=== PATIENT | female | born 1930 | race Caucasian/White ===

== ENCOUNTER 2016-10-23 18:14 | Emergency (ER) | payer OTHER ==
[2016-10-23 18:54] LABS: URINE BILIRUBIN NEGATIVE (NEGATIVE); URINE BLOOD 1+ (NEGATIVE); URINE GLUCOSE (UA) 1+ (NEGATIVE); URINE LEUKOCYTE ESTERASE 2+ (NEGATIVE); URINE NITRITE NEGATIVE (NEGATIVE); URINE PROTEIN 2+ (NEGATIVE); URINE UROBILINOGEN NORMAL (0-1 mg/dl)
[2016-10-23 19:08] LABS: URINE APPEARANCE CLOUDY; URINE COLOR YELLOW
[2016-10-23 19:24] LABS: URINE RBC 0-1 /hpf
[2016-10-23 19:25] LABS: URINE BACTERIA 4+; URINE EPITHELIAL CELLS 0 /hpf; URINE WBC 50-60 /hpf
--- NOTE | 2016-10-23 19:52 | CT ---
EXAMINATION: Noncontrast cranial CT. CLINICAL INDICATION: Weakness and confusion. TECHNIQUE: A noncontrast cranial CT scan was obtained. Axial images were acquired from just above the vertex through the skull base. 4 mm stacked axial, coronal, and sagittal reconstructions were reviewed. COMPARISONS: 08/10/2016. FINDINGS: The CSF containing spaces are prominent throughout. There is diminished attenuation within the periventricular white matter tracts bilaterally. Bilateral basal ganglia calcifications are again noted. No acute intercranial hemorrhage, mass or mass effect is identified. No extra-axial fluid collections are detected. The visualized segments of the posterior fossa are unremarkable. The cerebellar pontine angle cisterns are symmetric. The osseous structures are intact. The paranasal sinuses are clear. The visualized portions of the orbits are unremarkable. The mastoid sinuses are normal and symmetric. 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 No acute intracranial abnormalities are identified. The findings were uploaded to the electronic medical record for review at approximately 7:52 PM 10/23/2016
[2016-10-23 20:11] LABS: I-STAT CREATININE 2.2 mg/dL (0.6-1.3)
[2016-10-23 20:37] LABS: TROPONIN I 0.03 ng/ml (0.0-0.06)
[2016-10-23] MEDS ORDERED: CEFTRIAXONE 1 GRAM DUPLEX 50 ML IV ONE (20:38)
[2016-10-23 20:46] LABS: ABSOLUTE NEUTROPHIL COUNT 5.7 K/mm3 (1.8-7.7); BASO # 0.1 K/mm3 (0.0-0.2); BASO % 0.7 % (0.2-1.0); EOS # 0.2 (0.0-0.5); EOS % 1.8 % (0.9-2.9); HEMOGLOBIN 10.7 gm/l (12.0-16.0); IMM NEUT # 0.1 K/mm3 (0-0.2); IMM NEUT% 1.2 % (0-1); LYMPH # 1.9 (1.0-4.8); LYMPH % 20.7 % (15-45); MEAN CELL VOLUME 96.8 fl (81.0-99.0); MEAN CORPUSCULAR HEMOGLOBIN 31.4 pg (27.0-31.0); MEAN CORPUSCULAR HGB CONC 32.4 g/dl (33.0-37.0); MEAN PLATELET VOLUME 9.9 fl (7.4-10.4); MONO # 1.1 (0.0-0.8); MONO % 12.1 % (4-12); NEUT % 63.5 % (43-75); PLATELET COUNT 318 K/mm3 (130-400); RED CELL DISTRIBUTION WIDTH 14.6 % (11.5-14.5); THYROID STIMULATING HORMONE 2.67 uIU/ml (0.34-5.60)
[2016-10-23 21:02] LABS: INR 2.05; PROTHROMBIN TIME 22.4 SECONDS (9.3-11.4)
[2016-10-24 17:47] LABS: ALB/GLOB RATIO 0.9 (>1.0); ALBUMIN 3.5 gm/dL (3.5-5.7); CALCIUM 8.8 mg/dL (8.6-10.3); MAGNESIUM 2.1 mg/dL (1.9-2.7)
== END 2016-10-23 22:25 | disposition home or self-care (01) ==
LOC: ED 18:14
DX: N39.0 Urinary tract infection, site not specified (principal); I50.9 Heart failure, unspecified; I48.91 Unspecified atrial fibrillation; Z79.01 Long term (current) use of anticoagulants; E11.9 Type 2 diabetes mellitus without complications; Z79.84 Long term (current) use of oral hypoglycemic drugs
CPT/HCPCS: 85025; 87086; 80162; 80053; 87186; 83735; 85610; 84443; 84484 ×2; 81001; 70450; 99284 ×2; 96365; 82962; 93005 ×2; J0696